=== PATIENT | female | born 1985 | race African-American/Black ===

== ENCOUNTER 2025-04-10 08:09 | Outpatient (AMB) | payer OTHER, SELFPAY ==
--- NOTE | 2025-04-10 08:13 | A.OFFVIS_ITS ---
Vital Signs 04/10/25 08:30 Height 5 ft 7 in Weight 273 lb 5.971 oz BMI 42.8 BP 118/78 Blood Pressure Location Rt brachial Position Sitting Pulse 78 Pulse Source Pulse Oximeter Pulse Oximetry (%) 96 Oxygen Delivery Method Room Air Intake Visit Reasons: Uncontrolled DM Intake Note: NEW Patient presents today to establish treatment for Type 2 Diabetes Mellitus: Last Diabetic eye exam was on: DUE, needs a referral Last Podiatry exam was on: Patient does not see a Solar Project Coordination Specialist Most recent HbA1c: 9.2%, last A1c 11.6% was done on 12/28/2024 at [facility]. (Referral) Random Glucose: 225 mg/dL Packing And Stamping Machine Operator Required: No Accompanied by: Self / Same As Patient Allergies amoxicillin Allergy (Severe, Verified 04/10/25 08:14) Hives codeine Allergy (Severe, Verified 04/10/25 08:14) Anaphylaxis sulfamethoxazole (From Bactrim) Allergy (Severe, Verified 04/10/25 08:20) HIVE trimethoprim (From Bactrim) Allergy (Severe, Verified 04/10/25 08:20) HIVE empagliflozin (From Jardiance) Allergy (Mild, Verified 04/10/25 08:14) rash metformin Adverse Reaction (Intermediate, Verified 04/10/25 08:38) Dizziness HPI Comments Details: The patient is a 39 year old female with uncontrolled type 2 diabetes presenting for consultation Medical history: anxiety/depression, anemia, h/o resolved etoh/drug abuse Diagnosed November 2024. Says prediabetic for the past ~5 years PCP: Dr Wong Current diabetic medications Mounjaro 2.5mg weekly (has been on this 5 weeks) Stopped jardiance 2/2 possible allergic reaction (rash). She believes it was a switch in laundry detergent. Previously on metformin-caused dizziness. Tried twice A1C 9.2 today from 11.9%. Uses accuchek. For the first two weeks on mounjaro has frequent overnight hypoglycemia Family history of type 2 diabetes Mom, maternal gma and aunts Has nutrition available through work Normal kidney function. Not on RAJNI, statin ROS CONSTITUTIONAL: Denies weight loss, fever and chills. HEENT: Denies changes in vision and hearing. RESPIRATORY: Denies SOB and cough. CV: Denies palpitations and CP GI: Denies abdominal pain, nausea, vomiting and diarrhea. : Dysuria MSK: Denies new myalgia and joint pain. SKIN: Denies rash and pruritus. NEUROLOGICAL: Denies headache PSYCHIATRIC: Denies recent changes in mood. PHYSICAL EXAM: GENERAL: Alert and oriented x 3. NAD EYES: EOMI. Anicteric. HENT: Moist mucous membranes. No scleral icterus. No cervical lymphadenopathy. LUNGS: Clear to auscultation bilaterally. CARDIOVASCULAR: Regular rate and rhythm. No murmur. No JVD. ABDOMEN: Soft, non-tender +bs EXTREMITIES: No edema. Non-tender. SKIN: No rashes or lesions. Warm. NEUROLOGIC: No focal neurological deficits. CN II-XII grossly intact PSYCHIATRIC: Cooperative. Appropriate mood and affect [facility] Medical History (Updated 04/10/25 @ 09:12 by Nikki Glvoer MD) Muscle cramping Rash Type 2 diabetes mellitus History of drug abuse in remission Anemia Anxiety and depression Surgical History (Updated 04/10/25 @ 08:44 by EFREN Sloan) History of hysteroscopy Hx of cholecystectomy Hx of hernia repair Family History Father No problems noted. Mother No problems noted. Social History Alcohol intake: current Alcohol intake frequency: does not drink Patient Tobacco Use Status: Never used Tobacco Physical Exam Vital Signs: Last Vital Signs Pulse 78 04/10/25 08:30 BP 118/78 04/10/25 08:30 Pulse Ox 96 04/10/25 08:30 Oxygen Delivery Method Room Air 04/10/25 08:30 BMI result Body Mass Index 42.8 Results AMB Hemoglobin A1c AMB Hemoglobin A1c 9.2 % Last Edit by EFREN Sloan on 04/10/25 08:52 Results Reviewed Results Reviewed: Laboratory Last Values Glucose (Clinic) 225 mg/dL (60-115) H 04/10/25 08:38 Hgb A1c (Clinic) 9.2 % (4.0-6.0) H 04/10/25 08:46 Assessment & Plan Assessment & Plan (1) Type 2 diabetes mellitus: Code(s): E11.9 - Type 2 diabetes mellitus without complications Category: Medical Qualifiers: Diabetes mellitus termite technician insulin use: without termite technician use Diabetes mellitus complication status: with hypoglycemia Diabetes mellitus complication detail: without coma Qualified Code(s): E11.649 - Type 2 diabetes mellitus with hypoglycemia without coma (2) Hypoglycemia: Code(s): E16.2 - Hypoglycemia, unspecified Category: Medical Plan 39 year old for diabetic consultation Her A1C has recently improved with initiation of mounjaro. She will go up with next injection to 5 weekly. She will add acarbose at dinner. She would benefit from CGM given hypoglycemia Discussed the rules of 15s for hypoglycemia treatment Referred for diabetic eye exam Referred for CDE She will go to nutrition through work/insurance program Consider adding RAJNI/ARB/statin Dysuria-ua/uc, macrobid, fluconazole sent Orders: Orders Glutamic acid decarboxylase Ab Today E11.9 - Type 2 diabetes mellitus without complications, E16.2 - Hypoglycemia, unspecified AMB Hemoglobin A1c Today E11.65 - Type 2 diabetes mellitus with hyperglycemia Urine Culture Today E11.9 - Type 2 diabetes mellitus without complications, R30.0 - Dysuria UA and rflx microscopic Today E11.9 - Type 2 diabetes mellitus without complications, R30.0 - Dysuria Islet Cell Antibody Scrn/Titer Today E11.9 - Type 2 diabetes mellitus without complications, E16.2 - Hypoglycemia, unspecified Referrals Diabetes Education Referral E11.9 - Type 2 diabetes mellitus without complications, E16.2 - Hypoglycemia, unspecified Diabetic Eye Exam Referral E11.9 - Type 2 diabetes mellitus without complications, E16.2 - Hypoglycemia, unspecified Medications: New fluconazole may repeat second dose 72 hrs after first dose if symptoms persist 150 mg PO Q3D PRN 10 tabs 0RF yeast infection 2 doses Dexcom G7 Sas Clinical Programmer (blood-glucose,credentialing assistant,cont) continuous glucose monitoring 1 ea 0RF NS E11.9 - Type 2 diabetes mellitus without complications, E16.2 - Hypoglycemia, unspecified Dexcom G7 Sensor (blood-glucose sensor) every 15 days 6 ea 3RF NS E11.9 - Type 2 diabetes mellitus without complications, E16.2 - Hypoglycemia, unspecified nitrofurantoin monohyd/m-cryst 100 mg (Macrobid) must administer with a meal/food 100 mg PO Q12H 14 caps 0RF 7 days Mounjaro (tirzepatide) 5 mg (0.5 mL) subcut QWEEK 6 mL 3RF NS acarbose with dinner 50 mg PO DAILY 90 tabs 1RF Coding Level of Care Code New Pt Level 4 (23774) Complex EM visit Add On G2211 Diagnoses Type 2 diabetes mellitus with hypoglycemia without coma, without long-term current use of insulin E11.649 Diabetes mellitus prison insulin use: without termite technician use Diabetes mellitus complication status: with hypoglycemia Diabetes mellitus complication detail: without coma Hypoglycemia E16.2
[2025-04-10 08:30] VITALS: BP 118/78; PULSE 78; O2SAT 96; BMI 42.8
[2025-04-10 08:43] LABS: Glucose, Whole Blood 225 mg/dL (60-115)
--- OUTSIDE RECORDS SUMMARY | 2025-04-10 15:42 | XMS_ITS | Patient Health Record ---
Author Organization [employer] Address [facility] [address] Care Team Providers Care Private Client Advisor Name Role Phone Delvin Forman [phone] Allergies Allergen (clinical drug ingredient) Drug/Non Drug Allergy documented on EMR Reaction Allergy Type Onset Date Status codeine Codeine Unknown Drug Allergy Active Reason For Referral No Information Medications Medication SIG (Take, Route, Frequency, Duration) Notes Start Date End Date Status Mirtazapine 15 mg tablet 1 tab(s) orally once a day (at bedtime); Duration: 30 day(s) Active hydroxyzine hydrochloride 50 mg tablet 1 tab(s) orally 4 times a day *Reorder from [facility] for eRx and Interaction Alerts* Active Glimepiride 2 mg tablet 1 tab(s) orally once a day; Duration: 30 day(s) Active cloNIDine 0.1 mg tablet 1 tab(s) orally 2 times a day; Duration: 30 day(s) *Pick strength-form from [facility] for eRX* Active propranolol 20 mg tablet 1 tab(s) orally 2 times a day; Duration: 30 day(s) *Reorder from [facility] for eRx and Interaction Alerts* Active ARIPiprazole 15 mg tablet 1 tab(s) orally once a day; Duration: 30 day(s) Active Vitamin D3 1000 intl units tablet as directed orally once a day; Duration: 30 day(s) *Pick strength-form from [facility] for eRX* Active Naltrexone 50 mg tablet 1 tab(s) orally once a day; Duration: 12 week(s) *Pick strength-form from [facility] for eRX* Active True Metrix Test Strips *Reorder from [facility] for eRx and Interaction Alerts* Active sertraline 100 mg tablet 1 tab(s) orally once a day; Duration: 30 day(s) *Reorder from [facility] for eRx and Interaction Alerts* Active True Metrix Go Blood Glucose Meter Kit, 1 ea *Reorder from [facility] for eRx and Interaction Alerts* Active buspirone 15 mg tablet 1 tab(s) orally 2 times a day; Duration: 30 day(s) *Reorder from [facility] for eRx and Interaction Alerts* Active Social History Social History Additional Details Category Social Info Options Details Migrated Social History Migrated Social History (Alcohol:):no (Exercise:):no (Tobacco:):yes cigarettes per day: 10 Problems Problem Type SNOMED Code ICD Code Onset Dates Problem Status W/U Status Risk Notes Problem 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
--- OUTSIDE RECORDS SUMMARY | 2025-04-10 15:42 | XMS_ITS | Clinical Summary ---
Author Organization [address] Address [address] [place] [address] Phone Care Team Providers Care Supervisor Insecticide Name Role Phone Marcin Downs DO Primary Care Provider [phone] Social History Tobacco Use Types Packs/Day Years Used Date Smoking Tobacco: Never Assessed Comments Unknown Sex and Gender Information Value Date Recorded Sex Assigned at Not on file Legal Sex Female 1:58 PM EST Gender Identity Not on file Sexual Orientation Not on file Plan of Treatment Health Maintenance Due Date Last Done Comments Diabetes: Annual Foot Exam 1997 Diabetes: Annual Retina Eye Exam 1997 DTaP,Tdap,and Td Vaccines (1 - Tdap) 2006 Hepatitis B Vaccines (1 of 3 - 19+ 3-dose series) 2006 Pneumococcal Vaccine: Pediatrics (0 to 5 Years) and At-Risk Patients (6 to 49 Years) (1 of 2 - PCV) 2006 Cervical Cancer Screening: P ap Smear 2008 HPV Vaccines (1 - 3-dose SCD M series) 2014 Depression Screening 05/23/2024 HIV Screening 12/28/2024 Hepatitis C Screening 12/28/2024 Social Influencers of Health Screening 12/28/2024 COVID-19 Vaccine (2 - 2024-2 6 season) 2025 06/11/2021 Influenza Vaccine (#1) 2025 Diabetes: Blood Sugar Contro l Test (HGBA1C) 06/30/2025 12/28/2024 Diabetes: Annual Urine Albumin-Creatinine Ratio (uACR) 12/28/2025 12/28/2024 Diabetes: Annual GFR (Glomerular Filtration Rate) 01/17/2026 01/17/2025, 12/28/2024 Cholesterol Screening (Lipid Panel) 12/28/2029 12/28/2024 RSV Immunization Adult Patients (1 - 1-dose 75+ series) 2062 HIB Vaccines Aged Out No longer eligi ble based on patient's age to complete this topic Hepatitis A Vaccines Aged Out No long er eligible based on patient's age to complete this topic IPV Vaccines Aged Out No longer eligi ble based on patient's age to complete this topic MMR Vaccines Aged Out No longer eligi ble based on patient's age to complete this topic Meningococcal ACWY Vaccine Aged Out N o longer eligible based on patient's age to complete this topic Meningococcal B Vaccine Aged Out No l onger eligible based on patient's age to complete this topic RSV Immunization Patients Under 20 months Aged Out No longer eligible b ased on patient's age to complete this topic Varicella Vaccines Aged Out No longer eligible based on patient's age to complete this topic Procedures Procedure Name Priority Date/Time Associated Diagnosis Comments MAGNESIUM Routine 01/17/2025 9:44 AM EDT Muscle cramping BASIC METABOLIC PANEL Routine 01/17/2025 9:44 AM EDT Muscle cramping MICROALBUMIN CREATININE URINE RATIO Routine 12/28/2024 7:57 AM EDT DM (diabetes mellitus) ([facility] V24, [facility] V28) Laboratory tests ordered as part of a complete physical exam (CPE) BMI 40.0-44.9, adult ([facility] V24, [facility] V28) Vitamin D deficiency Anxiety HEMOGLOBIN A1C Routine 12/28/2024 7:57 AM EDT DM (diabetes mellitus) ([facility] V24, [facility] V28) Laboratory tests ordered as part of a complete physical exam (CPE) BMI 40.0-44.9, adult ([facility] V24, [facility] V28) Vitamin D deficiency Anxiety LIPID PANEL WITH REFLEX TO DIRECT LDL Routine 12/28/2024 7:57 AM EDT DM (diabetes mellitus) ([facility] [place]24, [facility] V28) Laboratory tests ordered as part of a complete physical exam (CPE) BMI 40.0-44.9, adult ([facility] [place], [facility] V28) Vitamin D deficiency Anxiety from Last 3 Months or Most Recently Relevant to Health Maintenance Results * Magnesium (01/17/2025 9:44 AM EDT) Pathologist [facility] Magnesium 1.9 1.9 - 2.6 mg/dL LAB CHEMISTRY METHOD 01/17/2025 11:48 AM EDT [facility] Blood Venous blood specimen / Unknown Venipuncture / Unknown 01/17/2025 9:44 AM EDT 01/17/2025 9:44 AM EDT [facility] LAB BLOOD ORDERABLES Final Resul t [facility] [address] [place] [address], * (ABNORMAL) Basic metabolic panel (01/17/2025 9:44 AM EDT) [facility] Sodium 137 133 - 145 mmol/L LAB CHEMISTRY METHOD 01/17/2025 11:49 AM [facility] Potassium 4.4 3.5 - 5.5 mmol/L LAB CHEMISTRY METHOD 01/17/2025 11:49 AM [facility] Chloride 105 96 - 110 mmol/L LAB CHEMISTRY METHOD 01/17/2025 11:49 AM [facility] CO2 26 21 - 32 mmol/L LAB CHEMISTRY METHOD 01/17/2025 11:49 AM [facility] Anion Gap 6 3 - 11 LAB CHEMISTRY METHOD 01/17/2025 11:49 AM [facility] Glucose 153(H) 70 - 100 mg/dL LAB CHEMISTRY METHOD 01/17/2025 11:49 AM [facility] BUN 14 5 - 25 mg/dL LAB CHEMISTRY METHOD 01/17/2025 11:49 AM EDT [facility] Creatinine 0.72 0.50 - 1.10 mg/dL LAB CHEMISTRY METHOD 01/17/2025 11:49 AM EDT [facility] eGFR 111 >=60 mL/min/1. 73m2 LAB CHEMISTRY METHOD 01/17/2025 11:49 AM EDT [facility] Comment:Calculation based on the Chronic Kidney Disease Epidemiology Collaboration (CKD-EPI) equation refit without adjustment for race. BUN/Creatinine Ratio 19.4 LAB CHEMISTRY METHOD 01/17/2025 11:49 AM T [facility] Calcium 9.2 8.5 - 10.5 mg/dL LAB CHEMISTRY METHOD 01/17/2025 11:49 AM [facility] Blood Venous blood specimen / Unknown Venipuncture / Unknown 01/17/2025 9:44 AM EDT 01/17/2025 9:44 AM EDT [facility] LAB BLOOD ORDERABLES Final Resul t [facility] [address] [place] [address], * (ABNORMAL) Lipid panel with reflex to direct LDL (12/28/2024 7:57 AM EDT) Cholesterol 190 0 - 200 mg/dL LAB CHEMISTRY METHOD 12/28/2024 12:30 PM EDT [facility] Triglycerides 136 0 - 150 mg/dL LAB CHEMISTRY METHOD 12/28/2024 12:30 PM EDT [facility] HDL 46 >=40 mg/dL LAB CHEMISTRY METHOD 12/28/2024 12:30 PM EDT [facility] LDL Calculated 117(H) 0 - 100 mg/dL LAB CHEMISTRY METHOD 12/28/2024 12:30 PM EDT [facility] Comment:Estimated LDL Calcul ated using equation: Total cholesterol - HDL cholesterol - (Triglycerides/5) VLDL Cholesterol Brian 27.2 mg/dL LAB CHEMISTRY METHOD 12/28/2024 12:30 PM EDT [facility] Non HDL Chol. (LDL+VLDL) 144 <145 mg/dL LAB CHEMISTRY METHOD 12/28/2024 12:30 PM EDT [facility] Chol/HDL Ratio 4.1 0.0 - 4.4 LAB CHEMISTRY METHOD 12/28/2024 12:30 PM EDT [facility] Blood Venous blood specimen / Unknown Venipuncture / Unknown 12/28/2024 7:57 AM EDT 12/28/2024 7:57 AM EDT Frank[facility] LAB BLOOD ORDERABLES Final Resul t Performing Organization Address [facility]/ZIP Ct de Phone Number [facility] [address] [place] [address], * (ABNORMAL) Microalbumin creatinine urine ratio (12/28/2024 7:57 AM EDT) Creatinine, Urine 121.0 mg/dL LAB CHEMISTRY METHOD 12/28/2024 1:39 PM EDT [facility] Microalb, Ur 170.0(H) 0.0 - 29.0 mg/L LAB CHEMISTRY METHOD 12/28/2024 1:39 PM EDT [facility] Microalb/Crea t Ratio 140(H) <30 mg/g creat LAB CHEMISTRY METHOD 12/28/2024 1:39 PM EDT [facility] Urine Urine specimen obtained by clean catch procedure / Unknown Non-blood Collection / Unknown 12/28/2024 7:57 AM EDT 12/28/2024 7:57 AM EDT [facility] LAB URINE ORDERABLES Final Resul t Performing Organization Address City/[facility]/ZIP Co de Phone Number [facility] [address] [place] [address], * (ABNORMAL) Hemoglobin A1c (12/28/2024 7:57 AM EDT) Hemoglobin A1C 11.9(H) <6.5 % LAB CHEMISTRY METHOD 12/28/2024 2:13 PM EDT [facility] Mean Bld Glu Estim. 295 mg/dL LAB CHEMISTRY METHOD 12/28/2024 2:13 PM EDT [facility] Blood Venous blood specimen / Unknown Venipuncture / Unknown 12/28/2024 7:57 AM EDT 12/28/2024 7:57 AM EDT [facility] LAB BLOOD ORDERABLES Final Resul t [facility] [address] [place] [address], from Last 3 Months or Most Recently Relevant to Health Maintenance Insurance [facility] [place] [id number] [facility] Care Teams Supervisor Insecticide Relationship Specialty Start Date End Date Marcin Downs DO [address] [place] [phone] PCP - General Internal Medicine 12/28/24
== END 2025-04-10 09:11 | disposition home or self-care (01) ==
PROVIDERS: PCP Internal Medicine; Visit Provider Internal Medicine
DX: E11.649 Type 2 diabetes mellitus with hypoglycemia without coma (principal); E11.65 Type 2 diabetes mellitus with hyperglycemia

== ENCOUNTER 2025-04-10 08:09 | Outpatient (REF) | payer OTHER, SELFPAY ==
[2025-04-10 14:30] LABS: Appearance Urine Cloudy; Glucose Urine UA 250 mg/dL (Negative); PH 7.5 (5.0-9.0); Specific Gravity - Urine 1.025 (1.005-1.025); UMIC TRIGGER UA YES
== END 2025-04-10 08:10 | disposition home or self-care (01) ==
LOC: HO.LAB 08:09
PROVIDERS: PCP Internal Medicine; Visit Provider Internal Medicine
DX: E11.649 Type 2 diabetes mellitus with hypoglycemia without coma (principal); R30.0 Dysuria; Z01.84 Encounter for antibody response examination; Z79.85 Long-term (current) use of injectable non-insulin antidiabetic drugs
CPT/HCPCS: 36415; 81001; 81003; 82947; 83036; 86341; 87086

== ENCOUNTER 2025-05-01 07:05 | Outpatient (AMB) | payer OTHER, SELFPAY ==
--- NOTE | 2025-05-01 08:01 | A.OFFVIS_ITS ---
Vital Signs 05/01/25 08:25 Height 5 ft 7 in Weight 268 lb 15.423 oz BMI 42.1 BP 122/72 Blood Pressure Location Rt brachial Position Sitting Pulse 71 Pulse Source Pulse Oximeter Pulse Oximetry (%) 99 Oxygen Delivery Method Room Air Intake Visit Reasons: DM follow up Intake Note: Patient presents today for a follow-up on Type 2 Diabetes Mellitus: Last Diabetic eye exam was on: DUE, pending a referral Last Podiatry exam was on: Patient does not see a Grating Machine Operator Most recent HbA1c: 9.2%, 04/10/2025 Random Glucose: 161 mg/dL Logistics And Planning Manager Required: No Accompanied by: Self / Same As Patient Allergies amoxicillin Allergy (Severe, Verified 05/01/25 08:02) Hives codeine Allergy (Severe, Verified 05/01/25 08:02) Anaphylaxis sulfamethoxazole (From Bactrim) Allergy (Severe, Verified 05/01/25 08:02) HIVE trimethoprim (From Bactrim) Allergy (Severe, Verified 05/01/25 08:02) HIVE empagliflozin (From Jardiance) Allergy (Mild, Verified 05/01/25 08:02) rash metformin Adverse Reaction (Intermediate, Verified 05/01/25 08:02) Dizziness HPI Comments Details: The patient is a 39 year old female with uncontrolled type 2 diabetes presenting for follow up Medical history: anxiety/depression, anemia, h/o resolved etoh/drug abuse Diagnosed November 2024. Says prediabetic for the past ~5 years PCP: Dr Wong Current diabetic medications Mounjaro 5mg daily (just increased last week) Insurance did not approve acarbose Stopped jardiance 2/2 possible allergic reaction (rash). She believes it was a switch in laundry detergent. Previously on metformin-caused dizziness. Tried twice A1C 9.2 04/10 from 11.9%. Uses accuchek. Dexcom ordered last visit as frequent overnight hypoglycemia with readings in 50s-60s. Saw CDE today and given Dexcom sample and education. Fasting blood glucose has improved to 120s-140s Family history of type 2 diabetes Mom, maternal gma and aunts Has nutrition available through work Normal kidney function. Not on RAJNI, statin ROS CONSTITUTIONAL: Denies weight loss, fever and chills. HEENT: Denies changes in vision and hearing. RESPIRATORY: Denies SOB and cough. CV: Denies palpitations and CP GI: Denies abdominal pain, nausea, vomiting and diarrhea. : Dysuria MSK: Denies new myalgia and joint pain. SKIN: Denies rash and pruritus. NEUROLOGICAL: Denies headache PSYCHIATRIC: Denies recent changes in mood. PHYSICAL EXAM: GENERAL: Alert and oriented x 3. NAD EYES: EOMI. Anicteric. HENT: Moist mucous membranes. No scleral icterus. No cervical lymphadenopathy. LUNGS: Clear to auscultation bilaterally. CARDIOVASCULAR: Regular rate and rhythm. No murmur. No JVD. ABDOMEN: Soft, non-tender +bs EXTREMITIES: No edema. Non-tender. SKIN: No rashes or lesions. Warm. NEUROLOGIC: No focal neurological deficits. CN II-XII grossly intact PSYCHIATRIC: Cooperative. Appropriate mood and affect [facility] Medical History (Updated 04/10/25 @ 09:12 by Nikki Glover MD) Muscle cramping Rash Type 2 diabetes mellitus History of drug abuse in remission Anemia Anxiety and depression Surgical History (Updated 04/10/25 @ 08:44 by EFREN Sloan) History of hysteroscopy Hx of cholecystectomy Hx of hernia repair Family History (Updated 04/10/25 @ 08:45 by EFREN Sloan) Father No problems noted. Mother No problems noted. Social History (Updated 04/10/25 @ 08:40 by EFREN Sloan) Alcohol intake: current Alcohol intake frequency: does not drink Patient Tobacco Use Status: Never used Tobacco Physical Exam Vital Signs: Last Vital Signs Pulse 71 05/01/25 08:25 BP 122/72 05/01/25 08:25 Pulse Ox 99 05/01/25 08:25 Oxygen Delivery Method Room Air 05/01/25 08:25 BMI result Body Mass Index 42.1 Assessment & Plan Assessment & Plan (1) Type 2 diabetes mellitus: Code(s): E11.9 - Type 2 diabetes mellitus without complications Category: Medical Qualifiers: Diabetes mellitus alf insulin use: without intermodal customer service use Diabetes mellitus complication status: with hypoglycemia Diabetes mellitus complication detail: without coma Qualified Code(s): E11.649 - Type 2 diabetes mellitus with hypoglycemia without coma (2) Hypoglycemia: Code(s): E16.2 - Hypoglycemia, unspecified Category: Medical Plan Type 2 diabetes Improving glycemic control. Some overnight hypoglycemia. Should warrant continued CGM use Goodrx coupon sent with acarbose Continue mounjaro 5mg weekly Treat hypoglycemia by rules of 15s Return in 2 months for A1C/DM follow up Medications: Changed From acarbose with dinner 50 mg PO DAILY 90 tabs 1RF To acarbose [id number] [facility] [id number] Member [id number] 50 mg PO DAILY 90 tabs 3RF Discontinued nitrofurantoin monohyd/m-cryst 100 mg (Macrobid) must administer with a meal/food Discontinued Reason: Doctor's Order 100 mg PO Q12H 7 days 14 caps 0RF Coding Level of Care Code Est Pt Level 4 (45500) Diagnoses Type 2 diabetes mellitus with hypoglycemia without coma, without long-term current use of insulin E11.649 Diabetes mellitus intermodal customer service insulin use: without alf use Diabetes mellitus complication status: with hypoglycemia Diabetes mellitus complication detail: without coma Hypoglycemia E16.2
[2025-05-01 08:25] VITALS: BP 122/72; PULSE 71; O2SAT 99; BMI 42.1
[2025-05-01 08:33] LABS: Glucose, Whole Blood 161 mg/dL (60-115)
== END 2025-05-01 08:50 | disposition home or self-care (01) ==
LOC: HO.ENCR 07:05
PROVIDERS: PCP Internal Medicine; Visit Provider Internal Medicine
DX: E11.649 Type 2 diabetes mellitus with hypoglycemia without coma (principal)

== ENCOUNTER 2025-05-01 07:05 | Outpatient (AMB) | payer OTHER, SELFPAY ==
--- OUTSIDE RECORDS SUMMARY | 2025-05-01 07:08 | XMS_ITS | Patient Health Record ---
Author Organization [employer] Address [facility] [address] Care Team Providers Care Human Resources Supervisor Name Role Phone Delvni Forman [phone] Allergies Allergen (clinical drug ingredient) Drug/Non Drug [...] orally 4 times a day *Reorder from [facility] for eRx and Interaction Alerts* Active Glimepiride 2 mg tablet 1 tab(s) orally once a day; Duration: 30 day(s) Active cloNIDine 0.1 mg tablet 1 tab(s) orally 2 times a day; Duration: 30 day(s) *Pick strength-form from [facility] for eRX* Active propranolol 20 mg tablet 1 tab(s) orally 2 times a day; Duration: 30 day(s) *Reorder from [facility] for eRx and Interaction Alerts* Active ARIPiprazole 15 mg tablet 1 tab(s) orally once a day; Duration: 30 day(s) Active Vitamin D3 1000 intl units tablet as directed orally once a day; Duration: 30 day(s) *[facility]* Active Naltrexone 50 mg tablet 1 tab(s) orally once a day; Duration: 12 week(s) *Pick strength-form from [facility] for eRX* Active True Metrix Test Strips *Reorder from [facility] for eRx and Interaction Alerts* Active sertraline 100 mg tablet 1 tab(s) orally once a day; Duration: 30 day(s) *[facility] for [facility] and Interaction Alerts* Active True Metrix Go Blood Glucose Meter Kit, 1 ea *[facility] for [facility] and Interaction Alerts* Active buspirone 15 mg tablet 1 tab(s) orally 2 times a day; Duration: 30 day(s) *[facility] for [facility] and Interaction Alerts* Active Social [...] Insured Coverage Start Date Coverage End Date [facility] [address] [facility] [place] [id number] [facility] Yvrose Blandon Self - patient is the insured 1 Medical (General) History Medical History History ICD Code Depression Hernia diabetes Surgical History Surgery Date(Month/Year) [facility] Hysteroscopy/D&C
--- OUTSIDE RECORDS SUMMARY | 2025-05-01 07:08 | XMS_ITS | Clinical Summary ---
Author Organization [address] Address [address] [place] [address] Phone Care Team Providers Care Value Stream Coach Name Role Phone Marcin Downs DO Primary Care Provider [phone] Social History Tobacco Use Types Packs/Day Years Used Date Smoking Tobacco: Never Assessed Comments Unknown Sex and Gender Information Value Date Recorded Sex Assigned at Not on file Legal Sex Female 1:58 PM EST Gender Identity Not on file Sexual Orientation Not on file Plan of Treatment Health Maintenance Due Date Last Done Comments DTaP,Tdap,and Td Vaccines (1 - Tdap) 2006 Hepatitis B Vaccines (1 of 3 - 19+ 3-dose series) 2006 Pneumococcal Vaccine: Pediat rics (0 to 5 Years) and At-Risk Patients (6 to 49 Years) (1 of 2 - PCV) 2006 Cervical Cancer Screening: P ap Smear 2008 HPV Vaccines (1 - 3-dose SCD M series) 2014 Depression Screening 05/23/2024 HIV Screening 12/28/2024 Hepatitis C Screening 12/28/2024 Social Influencers of Health Screening 12/28/2024 COVID-19 Vaccine (2 - 2024-2 6 season) 2025 06/11/2021 Influenza Vaccine (#1) 2025 Cholesterol Screening (Lipid Panel) 12/28/2029 12/28/2024 RSV Immunization Adult Patie nts (1 - 1-dose 75+ series) 2062 HIB [...] to complete this topic RSV Immunization Patients Un senait 20 months Aged Out No longer eligible b ased on patient's age to complete this topic Varicella Vaccines Aged Out No longer eligible based on patient's age to complete this topic Procedures Procedure Name Priority Date/Time Associated Diagnosis Comments LIPID PANEL WITH REFLEX TO DIRECT LDL Routine 12/28/2024 7:57 AM EDT DM (diabetes mellitus) ([facility] V24, [facility] V28) Laboratory tests ordered as part of a complete physical exam (CPE) BMI 40.0-44.9, adult ([facility] V24, [facility] V28) Vitamin D deficiency Anxiety from Last 3 Months or Most Recently Relevant to Health Maintenance Results * (ABNORMAL) Lipid panel with reflex to direct LDL (12/28/2024 7:57 AM EDT) Cholesterol 190 0 - 200 mg/dL LAB CHEMISTRY METHOD 12/28/2024 12:[address] [facility] Triglycerides 136 0 - 150 mg/dL LAB CHEMISTRY METHOD 12/28/2024 12:[address] [facility] HDL 46 >=40 mg/dL LAB CHEMISTRY METHOD 12/28/2024 12:[address] [facility] LDL Calculated 117(H) 0 - 100 mg/dL LAB CHEMISTRY METHOD 12/28/2024 12:[address] [facility] Comment:Estimated LDL Calcul ated using equation: Total cholesterol - HDL cholesterol - (Triglycerides/5) VLDL Cholesterol Brian 27.2 mg/dL LAB CHEMISTRY METHOD 12/28/2024 12:[address] [facility] Non HDL Chol. (LDL+VLDL) 144 <145 mg/dL LAB CHEMISTRY METHOD 12/28/2024 12:[address] [facility] Chol/HDL Ratio 4.1 0.0 - 4.4 LAB CHEMISTRY METHOD 12/28/2024 12:[address] [facility] Blood Venous blood specimen / Unknown Venipuncture / Unknown 12/28/2024 7:57 AM EDT 12/28/2024 7:57 AM EDT us Franko Radha LAB BLOOD ORDERABLES Final Resul t [facility] [address] [place] [address], from Last 3 Months or Most Recently Relevant to Health Maintenance Insurance [facility] Care Teams Value Stream Coach Relationship Specialty Start Date End Date Marcin Downs DO [address] [place] [phone] PCP - General Internal Medicine 12/28/24
--- NOTE | 2025-05-01 07:33 | MHC.AMDMED ---
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: No Accompanied by: Self / Same As Patient Allergies amoxicillin Allergy (Severe, Verified 04/10/25 08:14) Hives codeine Allergy (Severe, Verified 04/10/25 08:14) Anaphylaxis sulfamethoxazole (From Bactrim) Allergy (Severe, Verified 04/10/25 08:20) HIVE trimethoprim (From Bactrim) Allergy (Severe, Verified 04/10/25 08:20) HIVE empagliflozin (From Jardiance) Allergy (Mild, Verified 04/10/25 08:14) rash metformin Adverse Reaction (Intermediate, Verified 04/10/25 08:38) Dizziness [facility] Medical History (Updated 04/10/25 @ 09:12 by Nikki Glover MD) Muscle cramping Rash Type 2 diabetes mellitus History of drug abuse in remission Anemia Anxiety and depression Surgical History (Updated 04/10/25 @ 08:44 by EFREN Sloan) History of hysteroscopy Hx of cholecystectomy Hx of hernia repair Family History (Updated 04/10/25 @ 08:45 by EFREN Sloan) Father No problems noted. Mother No problems noted. Social History (Updated 04/10/25 @ 08:40 by EFREN Sloan) Alcohol intake: current Alcohol intake frequency: does not drink Patient Tobacco Use Status: Never used Tobacco Assessment & Plan Assessment & Plan (1) Type 2 diabetes mellitus: Code(s): E11.9 - Type 2 diabetes mellitus without complications Qualifiers: Diabetes mellitus continuous churn buttermaker insulin use: without continuous churn buttermaker use Diabetes mellitus complication status: with hypoglycemia Diabetes mellitus complication detail: without coma Qualified Code(s): E11.649 - Type 2 diabetes mellitus with hypoglycemia without coma Plan: Patient at visit to set up an insert Dexcom G7 with reader Patient at visit for CGM trial. Reports she has been experiencing episodes of hypoglycemia. Patient is currently taking Mounjaro 5 mg weekly Reviewed the following: Signs and symptoms of low blood sugar (happen quickly) Each person's reaction to low blood sugar is different. Learn your own signs and symptoms of when your blood sugar is low. Taking time to write these symptoms down may help you learn your own symptoms of when your blood sugar is low. From milder, more common indicators to most severe, signs and symptoms of low blood sugar include: Feeling shaky Being nervous or anxious Sweating, chills and clamminess Irritability or impatience Confusion Fast heartbeat Feeling lightheaded or dizzy Hunger Nausea Color draining from the skin (pallor) Feeling Sleepy Feeling weak or having no energy Blurred/impaired vision Tingling or numbness in the lips, tongue, or cheeks Headaches Coordination problems, clumsiness Hypoglycemia or blood glucose under 70 mg/dL use the rule of 15's: If you have your blood glucose meter test your blood glucose, if you do not have your meter still follow below instruction: Keep quick-sugar foods with you at all times.? Take 15 grams of fast acting carbohydrates. Examples are 4 ounces of fruit juice or regular soda pop, 8 ounces fat-free milk, 1 tablespoon of table sugar, honey or corn syrup, jam, one miniature box of raisins, 7-8 gumdrops or Life Savers candy, 4 glucose tablets, and glucose gel.? Retest blood glucose in 15 minutes, if blood glucose is still under 80 mg/dL,repeat rule of 15's. If blood glucose is under 50, take 30 grams of fast acting carbohydrates If you are having hypoglycemia, or insulin reaction, more that a few times a week, call MD or nutrition educator F/U BG check Instructed Pt on what CGM can and can't do CGM Can: Give Pt minute by minute reading of glucose levels Displays glucose trend arrows that represents the direction glucose levels are fluctuating Give insight on decisions about how to dose insulin CGM cannot: Improve glucose control on its own Completely eliminate the need for all finger sticks Make dosing decision for you CGM is the reading of glucose in the interstitial fluid not actual blood glucose, finger sticks are still necessary when Pt's symptom?s do not match sensor reading and if sensors prompts Pt to do a fingerstick Instructed patient sensors water proof you can shower, or swim do not submerge sensor in water for over 30 minutes Is sensor falls off cannot put back in you need to replace sensor, customer service number given to patient for sensor replacement Sensor placed on the back of right arm Patient left visit with sensor in warmup Reviewed how to interpret trend arrows Discussed lag time between finger stick and sensor data.? Instructed patient the importance of having blood glucometer for backup testing if needed Reviewed delay of CGM from fingersticks Reminded Pt that if symptoms do not match sensor still needs to check fingersticks. Portions of this note were created using voice recognition software, please excuse any words or phrases that may have been misinterpreted. Patient Instructions: Patient instruction: CGM provides information on blood glucose control throughout the day, including hyperglycemia and hypoglycemia. ? Continue to monitor blood glucose as instructed. Follow nutrition guidelines provided. Report any discomfort promptly to health care provider. ?Stay well-hydrated. You can bathe ,shower, swim and exercise while wearing the glucose sensor. Do not submerge glucose sensor in water for more than 30 minutes. How to treat hypoglycemia or low blood glucose under 70 mg/dL use the rule of 15's: If you have your blood glucose meter test your blood glucose, if you do not have your meter still follow below instruction: Keep quick-sugar foods with you at all times.? Take 15 grams of fast acting carbohydrates. Examples are 4 ounces of fruit juice or regular soda pop, 8 ounces fat-free milk, 1 tablespoon of table sugar, honey or corn syrup, jam, one miniature box of raisins, 7-8 gumdrops or Life Savers candy, 4 glucose tablets, and glucose gel.? Retest blood glucose in 15 minutes, if blood glucose is still under 80 mg/dL repeat rule of 15's. If blood glucose is under 50, take 30 grams of fast acting carbohydrates If you are having hypoglycemia, or insulin reaction, more that a few times a week, call MD or nutrition educator F/U BG check Follow-up with nutrition educator in 1 month Coding Level of Care Code Est Pt Level 1 (42184) Diagnoses Type 2 diabetes mellitus with hypoglycemia without coma, without long-term current use of insulin E11.649 Diabetes mellitus care home insulin use: without care home use Diabetes mellitus complication status: with hypoglycemia Diabetes mellitus complication detail: without coma
== END 2025-05-01 08:48 | disposition home or self-care (01) ==
LOC: HO.ENCR 07:05
PROVIDERS: PCP Internal Medicine; Visit Provider Registered Nurse Diabetes Educator
DX: E11.649 Type 2 diabetes mellitus with hypoglycemia without coma (principal)
CPT/HCPCS: 99499

== ENCOUNTER → 2025-05-01 07:05 | Outpatient (BNVA) | payer OTHER, SELFPAY | PROVIDERS: PCP Internal Medicine; Visit Provider Registered Nurse Diabetes Educator | DX: E11.649 Type 2 diabetes mellitus with hypoglycemia without coma (principal); Z79.85 Long-term (current) use of injectable non-insulin antidiabetic drugs | CPT/HCPCS: 82947 ==